=== PATIENT | male | born 2000 | race Caucasian/White ===

== ENCOUNTER 2024-12-20 13:50 | Emergency (ER) | payer MEDICAID ==
[~2024-12-20] VITALS: Ht 180.3 cm; Wt 124.0 kg
[~2024-12-20 13:50] MED LIST: DILT180C66 MT; FLUT16SP15 NAS; OMEG-221 PO
[2024-12-20 14:12] LABS: CLARITY URINE CLEAR (CLEAR); COLOR URINE YELLOW (YELLOW); GLUCOSE URINE NEGATIVE (NEGATIVE); KETONES URINE NEGATIVE (NEGATIVE); LEUKOCYTE ESTERASE URINE NEGATIVE (NEGATIVE); NITRITE URINE NEGATIVE (NEGATIVE); OCCULT BLOOD URINE NEGATIVE (NEGATIVE); PROTEIN URINE NEGATIVE (NEGATIVE); SPECIFIC GRAVITY URINE 1.023 (1.005-1.030)
[2024-12-20] MEDS: KETOROLAC 30MG/ML VIAL IM STA (14:58)
[2024-12-20 15:39] LABS: BASOPHILS % 0.4 % (0.0-2.0); EOSINOPHILS % 1.9 % (0.0-5.0); HEMATOCRIT. 45.7 % (42.0-52.0); LYMPHOCYTES % 21.2 % (20.0-50.0); MEAN CORPUSCULAR HEMOGLOBIN 30.4 pg (28.0-32.0); MONOCYTES % 9.2 % (2.0-8.0); NEUTROPHILS % 67.3 % (40.0-76.0); PLATELET 254 x1000/uL (130-400); RED BLOOD CELL COUNT 5.25 mill/uL (4.7-6.1); RED CELL DISTRIBUTION WIDTH 12.8 % (11.6-14.6); WHITE BLOOD COUNT 9.2 x1000/uL (4.5-11.0)
[2024-12-20 15:44] LABS: CHLORIDE 103 mEq/L (98-107); POTASSIUM 3.9 mEq/L (3.5-5.1); SODIUM 139 mEq/L (136-145)
[2024-12-20 15:45] LABS: CARBON DIOXIDE 28 mEq/L (21-32)
[2024-12-20 15:46] LABS: CALCIUM 9.1 mg/dL (8.7-10.4)
[2024-12-20] MEDS: ACETAMINOPHEN 325MG TABLET PO STA (15:47)
[2024-12-20 15:50] VITALS: PULSE 91; RESP 16; O2SAT 94
[2024-12-20 15:50] LABS: CREATININE 0.9 mg/dL (0.6-1.3); GLUCOSE 92 mg/dL (70-105)
[2024-12-20] MEDS: IPRATROPIUM BROMIDE (0.02%) 0.5MG/2.5ML NEB HHN STA (15:50)
[2024-12-20] MEDS: ALBUTEROL (0.083%) 2.5MG/3ML NEB HHN STA (15:50)
[2024-12-20 15:51] LABS: UREA NITROGEN BLOOD 10 mg/dL (9-23)
[2024-12-20] MEDS ORDERED: IBUP-2029 MT (16:17)
[2024-12-20] MEDS ORDERED: TOPUD PO (16:17)
[2024-12-20 16:30] VITALS: BP 152/74; PULSE 93; RESP 14; TEMP 36.6; O2SAT 98
[2024-12-20] MEDS ORDERED: DEXAMETHASONE 2MG TABLET PO ONE (16:30)
== END 2024-12-20 16:31 | disposition home or self-care (01) ==
LOC: ER 13:50
DX: R07.89 Other chest pain (principal); J45.909 Unspecified asthma, uncomplicated; B34.9 Viral infection, unspecified; M54.50 Low back pain, unspecified; I10 Essential (primary) hypertension; E11.9 Type 2 diabetes mellitus without complications; I51.9 Heart disease, unspecified; Z98.890 Other specified postprocedural states; Z79.899 Other long term (current) drug therapy
CPT/HCPCS: 80048; 81003; 85025; 36415; 71045; 76770; 94640; 93005; 96372; 99291; J8540; J1885; Z7610 ×3; 94070; 94664; 98960

== ENCOUNTER 2025-01-02 13:16 | Emergency (ER) | payer MEDICAID ==
[~2025-01-02] VITALS: Ht 177.8 cm; Wt 122.5 kg
[~2025-01-02 13:16] MED LIST changes: +IBUP-2029 MT; +TOPUD PO
[2025-01-02 13:19] VITALS: BP 142/96; TEMP 37.1; O2SAT 100
[2025-01-02 13:26] VITALS: PULSE 120; RESP 18; O2SAT 98
[2025-01-02 14:02] LABS: BASOPHILS % 0.3 % (0.0-2.0); HEMATOCRIT. 49.8 % (42.0-52.0); HEMOGLOBIN. 17.2 g/dL (14.0-18.0); LYMPHOCYTES % 16.2 % (20.0-50.0); MEAN CORPUSCULAR HEMOGLOBIN 29.9 pg (28.0-32.0); MEAN CORPUSCULAR HGB CONC 34.5 g/dL (31.0-37.0); MEAN CORPUSCULAR VOLUME 86.5 fL (80.0-94.0); MEAN PLATELET VOLUME 8.2 fl (7.4-10.4); MONOCYTES % 6.7 % (2.0-8.0); NEUTROPHILS % 76.8 % (40.0-76.0); PLATELET 391 x1000/uL (130-400); RED BLOOD CELL COUNT 5.75 mill/uL (4.7-6.1); RED CELL DISTRIBUTION WIDTH 13.1 % (11.6-14.6); WHITE BLOOD COUNT 14.3 x1000/uL (4.5-11.0)
[2025-01-02 14:13] LABS: CARBON DIOXIDE 25 mEq/L (21-32); CHLORIDE 105 mEq/L (98-107); POTASSIUM 3.4 mEq/L (3.5-5.1); PROTHROMBIN TIME 10.9 sec (9.6-11.0); SODIUM 139 mEq/L (136-145)
[2025-01-02 14:14] LABS: CALCIUM 8.7 mg/dL (8.7-10.4)
[2025-01-02 14:19] LABS: ETHANOL BLOOD < 10 mg/dL (<10); GLUCOSE 147 mg/dL (70-105); TROPONIN I HIGH SENSITIVITY 10 ng/L (3.0-53); UREA NITROGEN BLOOD 20 mg/dL (9-23)
[2025-01-02 14:21] LABS: PHOSPHORUS 2.6 mg/dL (2.5-4.9)
[2025-01-02] MEDS: MECLIZINE 25MG TABLET PO ONE (14:26)
[2025-01-02] MEDS: ACETAMINOPHEN 325MG TABLET PO ONE (14:26)
[2025-01-02] MEDS ORDERED: FAMO-135 MT (21:07)
[2025-01-02] MEDS ORDERED: MAG-55 MT (21:07)
== END 2025-01-02 16:40 | disposition left against medical advice (07) ==
LOC: ER 13:16
DX: R07.89 Other chest pain (principal); R42 Dizziness and giddiness; I10 Essential (primary) hypertension; J45.909 Unspecified asthma, uncomplicated; Z79.899 Other long term (current) drug therapy; Z98.890 Other specified postprocedural states
CPT/HCPCS: 80048; 80320; 83880; 83735; 84100; 85025; 85610; 84484; 36415; 70450; 93005; 99284; J8597; G0480

== ENCOUNTER 2025-01-02 18:40 | Emergency (ER) | payer MEDICAID ==
[~2025-01-02] VITALS: Ht 170.2 cm; Wt 122.5 kg
[2025-01-02 18:45] VITALS: TEMP 37.1; O2SAT 98
[2025-01-02] MEDS ORDERED: MAGNESIUM/ALUMINUM HYDROXIDE/SIMETHICONE 30ML UDC PO ONE (19:00)
[2025-01-02] MEDS ORDERED: ONDANSETRON 4MG ODT PO ONE (19:00)
[2025-01-02] MEDS ORDERED: FAMOTIDINE 20MG TABLET PO ONE (19:00)
[2025-01-02 19:53] LABS: TROPONIN I HIGH SENSITIVITY 12 ng/L (3.0-53)
[2025-01-02] MEDS: DICYCLOMINE HCL 10MG/ML 2ML VIAL IM ONE (20:47)
[2025-01-02] MEDS: MAGNESIUM/ALUMINUM HYDROXIDE/SIMETHICONE 30ML UDC PO SCH (20:48)
[2025-01-02] MEDS: ONDANSETRON 4MG ODT PO SCH (20:48)
[2025-01-02] MEDS: FAMOTIDINE 20MG TABLET PO SCH (20:48)
[2025-01-02] MEDS ORDERED: FAMO-135 MT (21:07)
[2025-01-02] MEDS ORDERED: MAG-55 MT (21:07)
[2025-01-02 21:45] VITALS: BP 133/86; PULSE 82; RESP 16; O2SAT 99
== END 2025-01-02 21:53 | disposition home or self-care (01) ==
LOC: ER 18:40
DX: R10.13 Epigastric pain (principal); R07.89 Other chest pain; R42 Dizziness and giddiness; I10 Essential (primary) hypertension; J45.909 Unspecified asthma, uncomplicated; Z79.899 Other long term (current) drug therapy
CPT/HCPCS: 99284; 84484; 36415; 96372; Q0162; J0500